=== PATIENT | male | born 2000 | race Hispanic/Latino ===

== ENCOUNTER 2023-03-12 22:51 | Emergency (ER) | payer OTHER ==
[~2023-03-12] VITALS: Ht 180.3 cm; Wt 103.4 kg
[2023-03-12] MEDS ORDERED: IBUP-2070 PO (23:21)
[2023-03-12] MEDS ORDERED: AMOX1TAB16 PO (23:21)
[2023-03-12] MEDS ORDERED: CIPR2.5D18 OP (23:21)
[2023-03-12 23:29] VITALS: BP 148/70; PULSE 78; RESP 16; O2SAT 99
[2023-03-12] MEDS ORDERED: KETOROLAC 30MG VIAL (30MG/ML) IM ONE (23:30)
[2023-03-12] MEDS ORDERED: CIPROFLOXACIN HCL 0.2%/HYDROCORT 1% 10 ML OTIC SUSP OTIC SCH (23:30)
== END 2023-03-12 23:36 | disposition home or self-care (01) ==
LOC: EDH 22:51
DX: H60.91 Unspecified otitis externa, right ear (principal); H66.91 Otitis media, unspecified, right ear
CPT/HCPCS: 99283; 96372; J1885

== ENCOUNTER 2023-08-15 17:36 | Emergency (ER) | payer OTHER ==
[~2023-08-15] VITALS: Ht 180.3 cm; Wt 97.1 kg
[~2023-08-15 17:36] MED LIST: AMOX1TAB16 PO; CIPR2.5D18 OP; IBUP-2070 PO
[2023-08-15 17:39] VITALS: BP 139/87; PULSE 74; RESP 18
[2023-08-15] MEDS: IBUPROFEN 800 MG TAB PO ONE (18:18)
[2023-08-15] MEDS ORDERED: IBUP-2077 PO (19:04)
== END 2023-08-15 19:30 | disposition home or self-care (01) ==
LOC: EDH 17:36
DX: S80.01XA Contusion of right knee, initial encounter (principal); X50.1XXA Overexertion from prolonged static or awkward postures, initial encounter; Y93.67 Activity, basketball; Y92.89 Other specified places as the place of occurrence of the external cause; Y99.8 Other external cause status
CPT/HCPCS: 73562